=== PATIENT | female | born 2000 | race Caucasian/White ===

== ENCOUNTER 2018-08-22 15:00 | Inpatient (IN) | payer MEDICAID ==
[~2018-08-22] VITALS: Ht 160 cm; Wt 108.6 kg
[2018-08-22 16:05] VITALS: BP 110/72; PULSE 98; RESP 16; Ht 160 cm; Wt 108.6 kg
--- NOTE | 2018-08-22 17:39 | TRIAGE ---
OB Triage Datetime Report Generated by CPN: 08/22/2018 17:39 Datetime: 08/22/2018 17:33 Labor Evaluation Quality: Mild Pattern: Normal: <= 5 Contractions in 10 Minutes Resting Tone [place]: Relaxed Contraction Comments: no uc Heart Rate FHR Baseline Rate: 135 Monitor Mode: External US Variability: Moderate 6-25 bpm Accelerations: 15X15 Decelerations: None Category: Category I Datetime: 08/22/2018 17:01 Pattern: Normal: <= 5 Contractions in 10 Minutes Resting Tone [place]: Relaxed Contraction Comments: no uc Heart Rate FHR Baseline Rate: 135 Monitor Mode: External US Variability: Moderate 6-25 bpm Accelerations: 15X15 Decelerations: None Category: Category I Datetime: 08/22/2018 15:44 Assessment Type: Admission Assessment Maternal Assessment Level of Consciousness: Fully Conscious DTR's/Clonus: DTRs 2+; No Clonus Headache: Frontal Blurred Vision: No Respiratory Effort: Unlabored; Regular Rhythm; Equal Expansion Breath Sounds, Left: Clear and Equal Breath Sounds, Right: Clear and Equal Nausea/Vomiting: Denies RUQ Epigastric Pain: Denies Lower Extremities Edema: None Degree: None Upper Extremities Edema: None Facial Edema: None Fall Risk Assessment History of Falling: (0) No Secondary Diagnosis: (0) No Ambulatory Aid: (0) Bedrest/Nurse Assist IV Therapy: (0) No Gait: (0) Normal/Bedrest/Immobile Mental Status: (0) Oriented to Own Ability Fall Score: 0 Fall Risk Score Definition: No Risk: No action required Datetime: 08/22/2018 15:40 Arrived By: Ambulatory Arrived From: Office Chief Complaint: TO ob triage from md office for eval pih due to high bp @ office, pt. c/o light FERNANDO , pain level 4/10, deny epigastric pain. deny srom, deny dizziness Movement: Present Contractions: Denies/Absent Rupture of Membranes: Denies Vaginal Bleeding: None Vaginal Discharge: Denies Recent Sexual Intercouse: Denies Abdominal Trauma: Not Applicable Patient Complaints: None Time Provider Notified: 08/22/2018 16:43 Provider Notified: Initial Plan: r/o pih
[2018-08-22] MEDS: LACTATED RINGER'S 1,000 ML IV SCH (18:42)
--- NOTE | 2018-08-22 18:51 | HP ---
Date/Time of Note Date/Time of Note DATE: 08/22/18 TIME: 18:41 OB - History Hx of Present Free Text/Dictation 18-year-old 1 with single intrauterine at 33 weeks and 1 day with GRAEME of 10/09/2018 seen at clinic today, her blood pressure was 136/99 and 128/99. Patient's referred to hospital for further evaluation. She states good movement. She denies nausea, vomiting, shortness of breath, chest pain, headache, visual changes, vaginal bleeding or LOF. She states had on and off headache 3 days ago, currently denies any headache. Chief Complaint: Elevated blood pressure Estimated Due Date: Oct 09, 2018 : 1 Care: Good Care Ultrasounds: Normal mid trimester US Obstetrical Complications: Pre-eclampsia Medical Complications: Other (Obesity, she is currently 238 pounds) Past Family/Social History * Past Medical, Surgical, Family and Obstetric Histories reviewed from chart. OB Admission Exam Vital Signs Vital Signs Vital Signs Date Temp Pulse Resp B/P (MAP) Pulse Ox O2 O2 Flow FiO2 Time Delivery Rate 08/22/18 98.1 98 16 110/72 16:05 (85) Physical Exam HEENT: WNL Heart: Rhythm Normal Lungs: Clear Abdomen: WNL Extremities: Normal Reflexes: Normal Membranes: Intact Heart Rate: 140's Accelerations: Accelerations Present Decelerations: No Decelerations Varibility: Moderate Contractions on Admission: None Last 72 hours Lab Results CBC & BMP 08/22/18 15:41 Liver Function Test 08/22/18 15:41 Alanine Aminotransferase (ALT/SGPT) 67 Albumin 4.0 Alkaline Phosphatase 161 H Aspartate Amino Transf (AST/SGOT) 69 H Direct Bilirubin 0.00 Total Protein 8.0 OB Assessment/Plan Other plan: 18-year-old 1 at 33 weeks and 1 day with preeclampsia and obesity - FHR: No sign of metabolic acidosis- Category I - Continuous EFM, toco - CBC, CMP, uric acid - Urinalysis, 24 hUP - Blood type and screen - Betamethasone 12 mg daily x2 analgesia options with R/B/A discussed in detail with patient - Ultrasound performed, amniotic fluid 6.7 - Patient discussed with Dr. Bingham over the phone who has agreed with above plan. Addendum: CBC within normal limits. CMP: Normal BUN and creatinine. AST 69(1546). ALT 67 (1369) Uric acid 5.5 Urinalysis with 1+ urine protein Labs, ultrasound, management discussed in detail with patient. She expressed understanding. All of her questions answered. LEONEL CAMPUZANO Aug 22, 2018 18:51
[2018-08-23] MEDS: LACTATED RINGER'S 1,000 ML IV SCH ×3 (01:37→20:06)
[2018-08-23] MEDS: PRENATAL VITAMIN PO SCH (09:12)
--- NOTE | 2018-08-23 11:30 | PN ---
Date/Time of Note Date/Time of Note DATE: 08/23/18 TIME: 11:27 OB Subjective Subjective Subjective Denies any blurred vision epigastric pain right upper quadrant pain. Had some headache earlier today and resolved. Denies any leaking of fluid vaginal bleeding or decreased movement. Comfortable in bed. OB Objective Objective Objective GA : Alert and oriented x4 does not appear to be in any acute distress Abdomen: Soft, gravid, fundal height consider gestational age NST: Category 1 No contraction on the monitor Laboratory Tests Test 08/22/18 15:30 08/22/18 15:41 08/23/18 06:26 08/23/18 07:11 Urine Color CALEB Urine Clarity CLEAR Urine pH 5.0 Urine Specific 1.033 H [place] Urine Ketones NEGATIVE Urine Nitrite NEGATIVE Urine Bilirubin NEGATIVE Urine Urobilinogen 1+ H Urine Leukocyte 3+ H Esterase Urine Microscopic RBC 2 Urine Microscopic WBC 3 Urine Squamous FEW Epithelial Cells Urine Mucus FEW A Urine Hemoglobin NEGATIVE Urine Glucose NEGATIVE Urine Total Protein 1+ H White Blood Count 10.3 9.6 Red Blood Count 4.33 3.65 L Hemoglobin 12.8 10.7 L Hematocrit 38.3 31.7 L Mean Corpuscular 88.5 86.8 Volume Mean Corpuscular 29.6 29.3 Hemoglobin Mean Corpuscular 33.4 33.8 Hemoglobin Concent Red Cell Distribution 13.2 13.1 Width Platelet Count 220 177 Mean Platelet Volume 11.0 H 10.9 H Immature Granulocytes 2.200 H 1.900 H % Neutrophils % 69.3 66.2 Lymphocytes % 20.8 25.0 Monocytes % 6.6 5.8 Eosinophils % 0.4 0.7 Basophils % 0.7 0.4 Nucleated Red Blood 0.0 0.0 Cells % Immature Granulocytes 0.230 H 0.180 H # Neutrophils # 7.1 6.3 Lymphocytes # 2.1 2.4 Monocytes # 0.7 0.6 Eosinophils # 0.0 0.1 Basophils # 0.1 0.0 Nucleated Red Blood 0.0 0.0 Cells # Prothrombin Time 12.3 12.9 Prothrombin Time 1.0 1.0 Ratio INR International 0.90 0.96 Normalized Ratio Activated 29.5 29.2 Partial Thromboplast Time Fibrinogen 634.0 H 576.0 #H Sodium Level 137 138 Potassium Level 4.3 3.7 Chloride Level 106 106 Carbon Dioxide Level 22 23 Anion Gap 9 9 Blood Urea Nitrogen 10 7 Creatinine 0.51 0.43 L Est Glomerular > 60 > 60 Filtrat Rate mL/min Glucose Level 87 110 Uric Acid 5.5 5.1 Calcium Level 9.7 9.2 Total Bilirubin 0.1 L 0.1 L Direct Bilirubin 0.00 0.00 Indirect Bilirubin 0.1 0.1 Aspartate Amino 69 H 42 Transf (AST/SGOT) Alanine 67 55 Aminotransferase (ALT /SGPT) Alkaline Phosphatase 161 H 121 Total Protein 8.0 5.9 #L Albumin 4.0 3.0 #L Globulin 4.00 H 2.90 Albumin/Globulin 1.00 1.03 Ratio Lab Scanned Report REFERENCE LAB OB Assessment/Plan Other Assessment: Admitted for observation and concern for possible PIH Mild transaminitis, resolved and LFT today Blood pressures since admission in normal range Patient had mild headache that resolved, likely related 24-hour urine protein collection in process Continue finish 24-hour urine protein collection. Will be done today at 8 PM Continue watch blood pressure closely NST every shift Expectant management JESUS LINDSAY MD Aug 23, 2018 11:30
[2018-08-23] MEDS: BETAMET NA PHOS/AC(6 MG/ML) 2 ML INJ SYG IM SCH (14:49)
--- NOTE | 2018-08-23 15:53 | CONS ---
Date/Time of Note Date/Time of Note DATE: 08/23/18 TIME: 15:50 Assessment/Plan Assessment/Plan Result Diagram: 08/23/18 0711 08/23/18 0711 Results 24hrs Laboratory Tests Test 08/23/18 06:26 08/23/18 07:11 Lab Scanned Report REFERENCE LAB White Blood Count 9.6 Red Blood Count 3.65 L Hemoglobin 10.7 L Hematocrit 31.7 L Mean Corpuscular Volume 86.8 Mean Corpuscular Hemoglobin 29.3 Mean Corpuscular Hemoglobin Concent 33.8 Red Cell Distribution Width 13.1 Platelet Count 177 Mean Platelet Volume 10.9 H Immature Granulocytes % 1.900 H Neutrophils % 66.2 Lymphocytes % 25.0 Monocytes % 5.8 Eosinophils % 0.7 Basophils % 0.4 Nucleated Red Blood Cells % 0.0 Immature Granulocytes # 0.180 H Neutrophils # 6.3 Lymphocytes # 2.4 Monocytes # 0.6 Eosinophils # 0.1 Basophils # 0.0 Nucleated Red Blood Cells # 0.0 Prothrombin Time 12.9 Prothrombin Time Ratio 1.0 INR International Normalized Ratio 0.96 Activated Partial Thromboplast Time 29.2 Fibrinogen 576.0 #H Sodium Level 138 Potassium Level 3.7 Chloride Level 106 Carbon Dioxide Level 23 Anion Gap 9 Blood Urea Nitrogen 7 Creatinine 0.43 L Est Glomerular Filtrat Rate mL/min > 60 Glucose Level 110 Uric Acid 5.1 Calcium Level 9.2 Total Bilirubin 0.1 L Direct Bilirubin 0.00 Indirect Bilirubin 0.1 Aspartate Amino Transf (AST/SGOT) 42 Alanine Aminotransferase (ALT/SGPT) 55 Alkaline Phosphatase 121 Total Protein 5.9 #L Albumin 3.0 #L Globulin 2.90 Albumin/Globulin Ratio 1.03 Consultation Date/Type/Reason Admit Date/Time Aug 22, 2018 at 17:10 Date of Consultation: Aug 23, 2018 Type of Consult Neonatology Reason for Consultation PIH in third trimester 33-2/7 weeks. Requesting Provider: LEONEL CAMPUZANO of Present Illness Asked to consult with this family by Dr. Amy Perez. Katina is 18-year old 1 with obesity, gestational age 33-2/7 weeks, with high blood pressure and suspect of possible -induced hypertension. She denies illnesses medications including herbal medication including drug smoking and alcohol but admits to marijuana. She was admitted to the hospital on 08/22 and 24-hour urine collection is in progress while being observed for the high blood pressure. Threatening delivery puts the baby at risk for problems and n eurodevelopmental development and I discussed this extensively with the family. Also problems related to the acute hospitalization problems such as respiratory problems feeding problems including the need for intravenous feeding and gavage feeding, feeding intolerance and necrotizing enterocolitis, hyperbilirubinemia intracranial hemorrhage apnea infection and many other problems related to christiano turity were extensively discussed, consult lasted 30 minutes and all their questions were answered. More than 50% of the time was spent on counseling and coordination of care. Thank you for allowing me to assist in the care of this family. Respiratory: sputum Past Medical History Medications Current Medications Lactated Ringer's 1,000 ml @ 125 mls/hr Q8H IV Last administered on 08/23/18at 12:56; Admin Dose 125 MLS/HR; Start 08/22/18 at 17:24 Prenat Multivit/ [place]/Iron/Folic Ac () 1 tab DAILY PO Last administe red on 08/23/18at 09:12; Admin Dose 1 TAB; Start 08/23/18 at 09:00 Betamethasone Acet/Betameth SodPhos (Celestone Soluspan) 12 mg Q24H IM Last administered on 08/23/18at 14:49; Admin Dose 12 MG; Start 08/23/18 at 14:30; Stop 08/24/18 at 14:31 Allergies: Coded Allergies: No Known Allergy (Unverified , 08/22/18) Social History Smoking Status: Never smoker Exam/Review of Systems Vital Signs Vitals Vital Signs Date Temp Pulse Resp B/P (MAP) Pulse Ox O2 O2 Flow FiO2 Time Delivery Rate 08/22/18 98.1 98 16 110/72 16:05 (85) Intake and Output 08/22/18 08/22/18 08/23/18 1515:00 23:00 07:00 IntakeIntake Total 600 ml 750 ml BalanceBalance 600 ml 750 ml Medications Medications Current Medications Lactated Ringer's 1,000 ml @ 125 mls/hr Q8H IV Last administered on 08/23/18at 12:56; Admin Dose 125 MLS/HR; Start 08/22/18 at 17:24 Prenat Multivit/ Hand Quilter/Iron/Folic Ac () 1 tab DAILY PO Last administered on 08/23/18at 09:12; Admin Dose 1 TAB; Start 08/23/18 at 09:00 Betamethasone Acet/Betameth SodPhos (Celestone Soluspan) 12 mg Q24H IM Last administered on 08/23/18at 14:49; Admin Dose 12 MG; Start 08/23/18 at 14:30; Stop 08/24/18 at 14:31 OSWALDO KOCH Aug 23, 2018 15:53
[2018-08-24] MEDS: LACTATED RINGER'S 1,000 ML IV SCH ×4 (01:24→21:16)
--- NOTE | 2018-08-24 01:44 | CONS ---
DATE OF ADMISSION: 08/22/2018 DATE OF CONSULTATION: 08/23/2018 TYPE OF CONSULTATION: Perinatology. HISTORY OF PRESENT ILLNESS: The patient is primigravida admitted from clinic with elevated blood pre ssure. Her diastolic blood pressure was 99. She denies history of hypertension. During her [facility] stay, her blood pressures have been normal. At presentation, her AST was 69; today, it is complete ly normal. She is currently 33 weeks and 2 days. Otherwise, laboratories are normal for pre-eclamps ia and 24-hour urine for protein collection is pending. OB HISTORY: G1. PAST SURGICAL HISTORY: None. REVIEW OF SYSTEMS: All systems reviewed; they are all negative. PHYSICAL EXAMINATION: Blood pressure is currently normal. Physical examination deferred. hea rt tones. She is on testing . However, yesterday, she had 1 small late deceleration; otherwise, normal. Overall reassuring. IMPRESSION: Intrauterine at 33 weeks and 2 days with elevated blood pressure in clinic. N ormal blood pressures completely in the hospital. AST elevation normal today. A 24-hour urine for p rotein is pending. Currently, she does not meet the criteria for diagnosis of gestational hypertensi on or pre-eclampsia for the absence of elevation of blood pressures 4 hours apart. She is to receive the second dose of betamethasone tonight. RECOMMENDATIONS: We can discharge the patient tomorrow if her blood pressures are normal or moderate range without any evidence of severe blood pressure. Also, repeat this complete metabolic panel and I do recommend continuous heart tone monitoring. If all are stable, she can be discharged [place], but since the patient had 1 diastolic blood pressure elevation, I do recommend testing t wice weekly and monitoring, so we can assess further management. Dictated By: CARINA GARZA MD ST/NTS Conf#: [id number] DID#: [id number] CC: LEONEL CAMPUZANO MD;*[facility]*
[2018-08-24] MEDS: PRENATAL VITAMIN PO SCH (08:09)
[2018-08-24] MEDS: BETAMET NA PHOS/AC(6 MG/ML) 2 ML INJ SYG IM SCH (15:09)
--- NOTE | 2018-08-25 00:39 | DS ---
Date/Time of Note Date/Time of Note DATE: 08/24/18 TIME: 23:35 Obstetrical Discharge Record Final Diagnosis Final Diagnosis: not delivered Other Final Diagnosis Late entry note. Patient seen on 08/24/2017 18-year-old 1 with single intrauterine at 33 weeks and 3 days had elevated blood pressure during visit. She was sent to the [facility] for further management. heart rate is category 1. She has no uterine contraction. Initially she had elevated AST (69). She was admitted for close observation and 24-hour urine protein. Betamethasone 12 mg daily for 2 doses given. AST 69 then 42 and 41 in today's lab ALT 67 and 55 and 49 in 2 days lab Highest blood pressure during admission was 111/63 24-hour urine protein is 412 Patient did not have any sign or symptom of preeclampsia with severe features. Sign and symptom of preeclampsia, labor, kick count discussed with patient in detail. She expressed understanding all of her questions answered. She discharged home in stable condition. I did recommend she buy a blood pressure machine and check her blood pressure at home twice a day. She has been scheduled for NST twice a week and FRANCISCO weekly. Follow-up in 2-3 days in clinic. Condition on Discharge Physical Assessment Voiding: Yes Bowel Movement: Yes Fundus: Firm Calf Tenderness: No Patient Condition: Stable LEONEL CAMPUZANO Aug 25, 2018 00:39
== END 2018-08-24 23:25 | disposition home or self-care (01) | DRG 833 ==
LOC: OBT 15:00 → L-D 15:03 → OBT 17:10 → PP1 18:14
PROVIDERS: ADMIT Obstetrics & Gynecology; ATTEND Obstetrics & Gynecology
DX: O26.893 Other specified pregnancy related conditions, third trimester (principal); O99.213 Obesity complicating pregnancy, third trimester; Z3A.33 33 weeks gestation of pregnancy; R03.0 Elevated blood-pressure reading, without diagnosis of hypertension
CPT/HCPCS: 76818; 80053; 81001; 82575; 84156; 84560; 85025; 85384; 85610; 85730; G0463; J0702; J7120

== ENCOUNTER 2018-08-27 10:24 | Outpatient (CLI) | payer MEDICAID ==
[~2018-08-27] VITALS: Ht 160 cm; Wt 108.8 kg
[2018-08-27 10:32] VITALS: Ht 160 cm; Wt 108.8 kg
[2018-08-27 10:33] VITALS: BP 113/64; PULSE 103; RESP 17
--- NOTE | 2018-08-27 12:09 | PN ---
Triage Information Date/Time Reason for visit: HX og Gestational HTN for NST BPP Weeks of Gestation 33+ /Para n/a Diabetes: none Hypertention: none Objective Vital Signs Date Temp Pulse Resp B/P (MAP) Pulse Ox O2 O2 Flow FiO2 Time Delivery Rate 08/27/18 98.5 103 17 113/64 10:33 (80) Heart Rate: 140's Contractions: None Disposition: Discharge Assessment/Plan BPP 03/28 Discharged with precautions Questions answered Follow up with provider DAMIAN MAYA M.D. Aug 27, 2018 12:08
--- NOTE | 2018-08-27 12:17 | TRIAGE ---
OB Triage Datetime Report Generated by CPN: 08/27/2018 12:16 Datetime: 08/27/2018 11:19 Comments: reactive nst Datetime: 08/27/2018 10:35 Assessment Type: Triage Maternal Assessment Level of Consciousness: Fully Conscious DTR's/Clonus: DTRs 2+; No Clonus Headache: Denies Blurred Vision: No Respiratory Effort: Unlabored; Regular Rhythm; Equal Expansion Breath Sounds, Left: Clear and Equal Breath Sounds, Right: Clear and Equal Nausea/Vomiting: Denies RUQ Epigastric Pain: Denies Lower Extremities Edema: None Degree: None Upper Extremities Edema: None Degree: None Facial Edema: None Fall Risk Assessment History of Falling: (0) No Secondary Diagnosis: (0) No Ambulatory Aid: (0) Bedrest/Nurse Assist IV Therapy: (0) No Gait: (0) Normal/Bedrest/Immobile Mental Status: (0) Oriented to Own Ability Fall Score: 0 Fall Risk Score Definition: No Risk: No action required Datetime: 08/27/2018 10:34 Time of Arrival: 08/27/2018 10:20 EGA: 33.6 Arrived By: Ambulatory Arrived From: Home Chief Complaint: Biweekly nst _ bpp Movement: Present Contractions: Denies/Absent Rupture of Membranes: Denies Vaginal Bleeding: None Vaginal Discharge: Denies Recent Sexual Intercouse: Denies Abdominal Trauma: Not Applicable Patient Complaints: None Time Provider Notified: 08/27/2018 12:00 Provider Notified: hadadian Initial Plan: nst, bpp Datetime: 08/25/2018 23:15 Stage of : Antepartum Datetime: 08/24/2018 23:25 Stage of : Antepartum Datetime: 08/24/2018 22:00 Labor Evaluation Frequency: ONE Monitor Mode: External Resting Tone Doctor Phillips: Relaxed Heart Rate FHR Baseline Rate: 135 Monitor Mode: External US Variability: Moderate 6-25 bpm Accelerations: 15X15 Decelerations: None Category: Category I Pain Presence: None/Denies Pain Type: N/A Datetime: 08/24/2018 21:16 Stage of : Antepartum Datetime: 08/24/2018 21:00 Labor Evaluation Frequency: NONE Monitor Mode: External Resting Tone Doctor Phillips: Relaxed Heart Rate FHR Baseline Rate: 135 Monitor Mode: External US Variability: Moderate 6-25 bpm Accelerations: 15X15 Decelerations: Variable Category: Category II Pain Presence: None/Denies Pain Type: N/A Datetime: 08/24/2018 20:00 Heart Rate FHR Baseline Rate: 130 Monitor Mode: External US Variability: Moderate 6-25 bpm Accelerations: 15X15 Decelerations: None Category: Category I Pain Presence: None/Denies Pain Type: N/A Datetime: 08/24/2018 19:36 Stage of : Antepartum Assessment Type: Ongoing Assessment Maternal Assessment Level of Consciousness: Fully Conscious DTR's/Clonus: DTRs 2+; No Clonus Headache: Denies Blurred Vision: No Respiratory Effort: Unlabored; Regular Rhythm; Equal Expansion Breath Sounds, Left: Clear and Equal Breath Sounds, Right: Clear and Equal Nausea/Vomiting: Denies RUQ Epigastric Pain: Denies Lower Extremities Edema: None Degree: None Upper Extremities Edema: None Degree: None Facial Edema: None Temperature Route: Oral Fall Risk Assessment History of Falling: (0) No Secondary Diagnosis: (0) No Ambulatory Aid: (0) Bedrest/Nurse Assist IV Therapy: (0) No Gait: (0) Normal/Bedrest/Immobile Mental Status: (0) Oriented to Own Ability Fall Score: 0 Fall Risk Score Definition: No Risk: No action required Contraction Comments: PT DENIES CRAMPING Comments: PT STATES THE BABY MOVES A LOT Pain Presence: None/Denies Pain Type: N/A Vaginal Exam Membrane Status: Intact Vaginal Bleeding: None Datetime: 08/24/2018 18:57 Labor Evaluation Frequency: NONE Monitor Mode: External Pattern: Normal: <= 5 Contractions in 10 Minutes Resting Tone Doctor Phillips: Relaxed Heart Rate FHR Baseline Rate: 140 Monitor Mode: External US FHR Baseline Changes: No Baseline Change Variability: Moderate 6-25 bpm Accelerations: 15X15 Decelerations: None Category: Category I Datetime: 08/24/2018 18:00 Labor Evaluation Frequency: NONE Monitor Mode: External Pattern: Normal: <= 5 Contractions in 10 Minutes Resting Tone Doctor Phillips: Relaxed Heart Rate FHR Baseline Rate: 140 Monitor Mode: External US FHR Baseline Changes: No Baseline Change Variability: Moderate 6-25 bpm Accelerations: 15X15 Decelerations: None Category: Category I Datetime: 08/24/2018 17:00 Labor Evaluation Frequency: X2 Monitor Mode: External Duration (sec)2399: 40-70 Quality: Mild Pattern: Normal: <= 5 Contractions in 10 Minutes Resting Tone Doctor Phillips: Relaxed Heart Rate FHR Baseline Rate: 135 Monitor Mode: External US FHR Baseline Changes: No Baseline Change Variability: Moderate 6-25 bpm Accelerations: 15X15 Decelerations: None Category: Category I Datetime: 08/24/2018 16:00 Labor Evaluation Frequency: NONE Monitor Mode: External Pattern: Normal: <= 5 Contractions in 10 Minutes Resting Tone Doctor Phillips: Relaxed Heart Rate FHR Baseline Rate: 145 Monitor Mode: External US FHR Baseline Changes: No Baseline Change Variability: Moderate 6-25 bpm Accelerations: 15X15 Decelerations: Variable Category: Category II Datetime: 08/24/2018 15:00 Labor Evaluation Frequency: NONE Monitor Mode: External Pattern: Normal: <= 5 Contractions in 10 Minutes Resting Tone Doctor Phillips: Relaxed Heart Rate FHR Baseline Rate: 135 Monitor Mode: External US FHR Baseline Changes: No Baseline Change Variability: Moderate 6-25 bpm Accelerations: 15X15 Decelerations: None Category: Category I Datetime: 08/24/2018 14:00 Labor Evaluation Frequency: NONE Monitor Mode: External Pattern: Normal: <= 5 Contractions in 10 Minutes Resting Tone Doctor Phillips: Relaxed Heart Rate FHR Baseline Rate: 135 Monitor Mode: External US FHR Baseline Changes: No Baseline Change Variability: Moderate 6-25 bpm Accelerations: 15X15 Decelerations: None Category: Category I Datetime: 08/24/2018 13:00 Labor Evaluation Frequency: NONE Monitor Mode: External Pattern: Normal: <= 5 Contractions in 10 Minutes Resting Tone Doctor Phillips: Relaxed Heart Rate FHR Baseline Rate: 135 Monitor Mode: External US FHR Baseline Changes: No Baseline Change Variability: Moderate 6-25 bpm Accelerations: 15X15 Decelerations: None Category: Category I Datetime: 08/24/2018 12:00 Labor Evaluation Frequency: NONE Monitor Mode: External Pattern: Normal: <= 5 Contractions in 10 Minutes Resting Tone Doctor Phillips: Relaxed Heart Rate FHR Baseline Rate: 135 Monitor Mode: External US FHR Baseline Changes: No Baseline Change Variability: Moderate 6-25 bpm Accelerations: 15X15 Decelerations: None Category: Category I Datetime: 08/24/2018 11:00 Labor Evaluation Frequency: NONE Monitor Mode: External Pattern: Normal: <= 5 Contractions in 10 Minutes Resting Tone Doctor Phillips: Relaxed Heart Rate FHR Baseline Rate: 135 Monitor Mode: External US FHR Baseline Changes: No Baseline Change Variability: Moderate 6-25 bpm Accelerations: 15X15 Decelerations: None Category: Category I Datetime: 08/24/2018 10:00 Labor Evaluation Frequency: OCCAISONAL Monitor Mode: External Duration (sec)2399: 40-60 Quality: Mild Pattern: Normal: <= 5 Contractions in 10 Minutes Resting Tone Doctor Phillips: Relaxed Heart Rate FHR Baseline Rate: 135 Monitor Mode: External US FHR Baseline Changes: No Baseline Change Variability: Moderate 6-25 bpm Accelerations: 15X15 Decelerations: None Category: Category I Datetime: 08/24/2018 09:00 Labor Evaluation Frequency: NONE Monitor Mode: External Pattern: Normal: <= 5 Contractions in 10 Minutes Resting Tone Doctor Phillips: Relaxed Heart Rate FHR Baseline Rate: 130 Monitor Mode: External US FHR Baseline Changes: No Baseline Change Variability: Moderate 6-25 bpm Accelerations: 15X15 Decelerations: None Category: Category I Datetime: 08/24/2018 08:13 Temperature Route: Axillary Datetime: 08/24/2018 08:00 Labor Evaluation Frequency: OCCASIONAL Monitor Mode: External Duration (sec)2399: 30-40 Quality: Mild Pattern: Normal: <= 5 Contractions in 10 Minutes Resting Tone Doctor Phillips: Relaxed Heart Rate FHR Baseline Rate: 130 Monitor Mode: External US FHR Baseline Changes: No Baseline Change Variability: Moderate 6-25 bpm Accelerations: 15X15 Decelerations: None Category: Category I Datetime: 08/24/2018 07:31 Assessment Type: Ongoing Assessment Maternal Assessment Level of Consciousness: Fully Conscious DTR's/Clonus: DTRs 2+; No Clonus Headache: Denies Blurred Vision: No Respiratory Effort: Unlabored; Regular Rhythm; Equal Expansion Breath Sounds, Left: Clear and Equal Breath Sounds, Right: Clear and Equal Nausea/Vomiting: Denies RUQ Epigastric Pain: Denies Lower Extremities Edema: None Upper Extremities Edema: None Facial Edema: None Fall Risk Assessment History of Falling: (0) No Secondary Diagnosis: (0) No Ambulatory Aid: (0) Bedrest/Nurse Assist IV Therapy: (20) Yes Gait: (0) Normal/Bedrest/Immobile Mental Status: (0) Oriented to Own Ability Fall Score: 20 Fall Risk Score Definition: No Risk: No action required Datetime: 08/24/2018 07:00 Labor Evaluation Frequency: occasional Monitor Mode: External Duration (sec)2399: 40-50 Quality: Mild Resting Tone Doctor Phillips: Relaxed Heart Rate FHR Baseline Rate: 135 Monitor Mode: External US Variability: Moderate 6-25 bpm Accelerations: 15X15 Decelerations: Variable Category: Category II Pain Presence: None/Denies Datetime: 08/24/2018 06:00 Labor Evaluation Frequency: 0 Monitor Mode: External Resting Tone Doctor Phillips: Relaxed Heart Rate FHR Baseline Rate: 135 Monitor Mode: External US Variability: Moderate 6-25 bpm Accelerations: 15X15 Decelerations: None Category: Category I Pain Presence: None/Denies Datetime: 08/24/2018 05:13 Maternal Assessment Level of Consciousness: Fully Conscious Headache: Denies Blurred Vision: No Temperature Route: Oral Pain Presence: None/Denies Datetime: 08/24/2018 05:00 Labor Evaluation Frequency: occasional Monitor Mode: External Duration (sec)2399: 50-60 Quality: Mild Resting Tone Doctor Phillips: Relaxed Heart Rate FHR Baseline Rate: 135 Monitor Mode: External US Variability: Moderate 6-25 bpm Accelerations: 15X15 Decelerations: None Category: Category I Pain Presence: None/Denies Datetime: 08/24/2018 04:00 Labor Evaluation Frequency: x2 Monitor Mode: External Duration (sec)2399: 50-60 Quality: Mild Resting Tone Doctor Phillips: Relaxed Heart Rate FHR Baseline Rate: 135 Monitor Mode: External US Variability: Moderate 6-25 bpm Accelerations: 15X15 Decelerations: None Category: Category I Datetime: 08/24/2018 03:00 Labor Evaluation Frequency: 0 Monitor Mode: External Duration (sec)2399: denies Resting Tone Doctor Phillips: Relaxed Heart Rate FHR Baseline Rate: 135 Monitor Mode: External US Variability: Moderate 6-25 bpm Accelerations: 15X15 Decelerations: Variable Category: Category II Pain Presence: None/Denies Datetime: 08/24/2018 02:00 Labor Evaluation Frequency: 0 Monitor Mode: External Resting Tone Doctor Phillips: Relaxed Heart Rate FHR Baseline Rate: 135 Monitor Mode: External US Variability: Moderate 6-25 bpm Accelerations: 15X15 Decelerations: Variable Category: Category II Datetime: 08/24/2018 01:00 Labor Evaluation Frequency: 0 Monitor Mode: External Duration (sec)2399: denies Resting Tone Doctor Phillips: Relaxed Heart Rate FHR Baseline Rate: 135 Monitor Mode: External US Variability: Moderate 6-25 bpm Accelerations: 15X15 Decelerations: None Category: Category I Pain Presence: None/Denies Datetime: 08/24/2018 00:00 Labor Evaluation Frequency: 0 Monitor Mode: External Resting Tone Doctor Phillips: Relaxed Heart Rate FHR Baseline Rate: 135 Variability: Moderate 6-25 bpm Pain Presence: None/Denies Datetime: 08/23/2018 23:00 Labor Evaluation Frequency: 0 Monitor Mode: External Duration (sec)2399: DENIES Resting Tone Doctor Phillips: Relaxed Heart Rate FHR Baseline Rate: 140 Monitor Mode: External US Variability: Moderate 6-25 bpm Accelerations: 15X15 Decelerations: None Category: Category I Comments: VERY DIFFICULT TO TRACE FETUS PT IS EXTREMELY OBESE. Pain Presence: None/Denies Datetime: 08/23/2018 22:00 Labor Evaluation Frequency: 0 Monitor Mode: External Duration (sec)2399: DENIES Resting Tone Doctor Phillips: Relaxed Heart Rate FHR Baseline Rate: 145 Monitor Mode: External US Variability: Moderate 6-25 bpm Accelerations: 15X15 Decelerations: None Category: Category I Pain Presence: None/Denies Datetime: 08/23/2018 21:00 Labor Evaluation Frequency: 0 Monitor Mode: External Duration (sec)2399: DENIES Resting Tone Doctor Phillips: Relaxed Heart Rate FHR Baseline Rate: 135 Monitor Mode: External US Variability: Moderate 6-25 bpm Accelerations: 15X15 Decelerations: None Category: Category I Comments: LOSS OF CONTACT AT TIMES,PT WAS SITTING UP. Pain Presence: None/Denies Datetime: 08/23/2018 20:08 Stage of : Antepartum Assessment Type: Ongoing Assessment Maternal Assessment Level of Consciousness: Fully Conscious DTR's/Clonus: DTRs 2+; No Clonus Headache: Denies Blurred Vision: No Respiratory Effort: Unlabored; Regular Rhythm; Equal Expansion Breath Sounds, Left: Clear and Equal Breath Sounds, Right: Clear and Equal Nausea/Vomiting: Denies RUQ Epigastric Pain: Denies Lower Extremities Edema: None Degree: None Upper Extremities Edema: None Degree: None Facial Edema: None Temperature Route: Oral Fall Risk Assessment History of Falling: (0) No Secondary Diagnosis: (0) No Ambulatory Aid: (0) Bedrest/Nurse Assist IV Therapy: (0) No Gait: (0) Normal/Bedrest/Immobile Mental Status: (0) Oriented to Own Ability Fall Score: 0 Fall Risk Score Definition: No Risk: No action required Pain Presence: None/Denies Datetime: 08/23/2018 20:00 Labor Evaluation Frequency: X1 Monitor Mode: External Duration (sec)2399: 60 Quality: Mild Resting Tone Doctor Phillips: Relaxed Heart Rate FHR Baseline Rate: 135 Monitor Mode: External US Variability: Moderate 6-25 bpm Accelerations: 15X15 Decelerations: None Category: Category I Pain Presence: None/Denies Datetime: 08/23/2018 19:02 Monitor Mode: External US Datetime: 08/23/2018 19:00 Labor Evaluation Frequency: 0 Monitor Mode: External Resting Tone Doctor Phillips: Relaxed Heart Rate FHR Baseline Rate: 135 Monitor Mode: External US FHR Baseline Changes: No Baseline Change Variability: Moderate 6-25 bpm Accelerations: 15X15 Decelerations: None Pain Assessment Pain Scale: 0 Pain Presence: None/Denies Pain Type: N/A Datetime: 08/23/2018 18:00 Labor Evaluation Frequency: 0 Monitor Mode: External Resting Tone Doctor Phillips: Relaxed Heart Rate FHR Baseline Rate: 140 Monitor Mode: External US FHR Baseline Changes: No Baseline Change Variability: Moderate 6-25 bpm Accelerations: 15X15 Decelerations: None Category: Category I Pain Presence: None/Denies Pain Type: N/A Datetime: 08/23/2018 17:00 Labor Evaluation Frequency: 0 Monitor Mode: External Resting Tone Doctor Phillips: Relaxed Heart Rate FHR Baseline Rate: 140 Monitor Mode: External US FHR Baseline Changes: No Baseline Change Variability: Moderate 6-25 bpm Accelerations: 15X15 Decelerations: None Category: Category I Pain Assessment Pain Scale: 0 Pain Presence: None/Denies Pain Type: N/A Datetime: 08/23/2018 16:00 Labor Evaluation Frequency: 0 Monitor Mode: External Resting Tone Doctor Phillips: Relaxed Heart Rate FHR Baseline Rate: 135 Monitor Mode: External US FHR Baseline Changes: No Baseline Change Variability: Moderate 6-25 bpm Accelerations: 15X15 Decelerations: None Pain Assessment Pain Scale: 0 Pain Presence: None/Denies Pain Type: N/A Datetime: 08/23/2018 15:07 Stage of : Antepartum Datetime: 08/23/2018 15:00 Stage of : Antepartum Labor Evaluation Frequency: x1 Monitor Mode: External Duration (sec)2399: 60 Quality: Mild Pattern: Normal: <= 5 Contractions in 10 Minutes Resting Tone Doctor Phillips: Relaxed Pain Assessment Pain Scale: 0 Pain Presence: None/Denies Pain Type: N/A Datetime: 08/23/2018 14:00 Labor Evaluation Frequency: 0 Monitor Mode: External Resting Tone Doctor Phillips: Relaxed Pain Assessment Pain Scale: 0 Pain Presence: None/Denies Pain Type: N/A Datetime: 08/23/2018 13:03 Stage of : Antepartum Datetime: 08/23/2018 13:00 Labor Evaluation Frequency: 0 Monitor Mode: External Resting Tone Doctor Phillips: Relaxed Pain Assessment Pain Scale: 0 Pain Presence: None/Denies Pain Type: N/A Datetime: 08/23/2018 12:13 Stage of : Antepartum Temperature Route: Oral Datetime: 08/23/2018 12:00 Labor Evaluation Frequency: 0 Monitor Mode: External Resting Tone Doctor Phillips: Relaxed Pain Assessment Pain Scale: 0 Pain Presence: None/Denies Pain Type: N/A Datetime: 08/23/2018 11:00 Labor Evaluation Frequency: 0 Monitor Mode: External Resting Tone Doctor Phillips: Relaxed Pain Assessment Pain Scale: 0 Pain Presence: None/Denies Pain Type: N/A Datetime: 08/23/2018 10:00 Labor Evaluation Frequency: x1 Monitor Mode: External Duration (sec)2399: 70 Quality: Mild Pattern: Normal: <= 5 Contractions in 10 Minutes Resting Tone Doctor Phillips: Relaxed Heart Rate FHR Baseline Rate: 130 Monitor Mode: External US FHR Baseline Changes: No Baseline Change Variability: Moderate 6-25 bpm Accelerations: 15X15 Decelerations: Variable Category: Category II Pain Assessment Pain Scale: 0 Pain Presence: None/Denies Pain Type: N/A Datetime: 08/23/2018 09:58 Stage of : Antepartum Datetime: 08/23/2018 09:00 Labor Evaluation Frequency: x1 Monitor Mode: External Duration (sec)2399: 70 Quality: Mild Pattern: Normal: <= 5 Contractions in 10 Minutes Resting Tone Doctor Phillips: Relaxed Heart Rate FHR Baseline Rate: 130 Monitor Mode: External US FHR Baseline Changes: No Baseline Change Variability: Moderate 6-25 bpm Pain Assessment Pain Scale: 0 Pain Presence: None/Denies Pain Type: N/A Datetime: 08/23/2018 08:00 Stage of : Antepartum Labor Evaluation Frequency: x3 Monitor Mode: External Duration (sec)2399: 70 Quality: Mild Pattern: Normal: <= 5 Contractions in 10 Minutes Resting Tone Doctor Phillips: Relaxed Contraction Comments: denies feeling contractions Heart Rate FHR Baseline Rate: 130 Monitor Mode: External US FHR Baseline Changes: No Baseline Change Variability: Moderate 6-25 bpm Accelerations: 15X15 Decelerations: None Category: Category I Pain Assessment Pain Scale: 0 Pain Presence: None/Denies Pain Type: N/A Datetime: 08/23/2018 07:49 Stage of : Antepartum Datetime: 08/23/2018 07:47 Stage of : Antepartum Temperature Route: Oral Datetime: 08/23/2018 07:45 Assessment Type: Ongoing Assessment Maternal Assessment Level of Consciousness: Fully Conscious DTR's/Clonus: DTRs 2+; No Clonus Headache: Denies Blurred Vision: No Respiratory Effort: Unlabored; Regular Rhythm; Equal Expansion Breath Sounds, Left: Clear and Equal Breath Sounds, Right: Clear and Equal Nausea/Vomiting: Denies RUQ Epigastric Pain: Denies Lower Extremities Edema: None Degree: None Upper Extremities Edema: None Degree: None Facial Edema: None Fall Risk Assessment History of Falling: (0) No Secondary Diagnosis: (0) No Ambulatory Aid: (0) Bedrest/Nurse Assist IV Therapy: (0) No Gait: (0) Normal/Bedrest/Immobile Mental Status: (0) Oriented to Own Ability Fall Score: 0 Fall Risk Score Definition: No Risk: No action required Datetime: 08/23/2018 06:54 Labor Evaluation Frequency: 0 Monitor Mode: External Resting Tone Doctor Phillips: Relaxed Heart Rate FHR Baseline Rate: 135 Variability: Moderate 6-25 bpm Comments: very difficult to keep fetus on monitor pt is extremely obese. Datetime: 08/23/2018 06:00 Labor Evaluation Frequency: 0 Monitor Mode: External Resting Tone Doctor Phillips: Relaxed Heart Rate FHR Baseline Rate: 135 Variability: Moderate 6-25 bpm Pain Presence: None/Denies Datetime: 08/23/2018 05:00 Labor Evaluation Frequency: 0 Monitor Mode: External Duration (sec)2399: denies Resting Tone Doctor Phillips: Relaxed Heart Rate FHR Baseline Rate: 135 Datetime: 08/23/2018 04:00 Labor Evaluation Frequency: 0 Monitor Mode: External Resting Tone Doctor Phillips: Relaxed Heart Rate FHR Baseline Rate: 135 Comments: very difficult to trace fetus due to maternal movments,pt is obese. Pain Presence: None/Denies Datetime: 08/23/2018 03:00 Labor Evaluation Frequency: 0 Monitor Mode: External Duration (sec)2399: DENIES Resting Tone Doctor Phillips: Relaxed Heart Rate FHR Baseline Rate: 140 Monitor Mode: External US Variability: Moderate 6-25 bpm Accelerations: 15X15 Decelerations: None Category: Category I Pain Presence: None/Denies Datetime: 08/23/2018 02:00 Labor Evaluation Frequency: 0 Monitor Mode: External Resting Tone Doctor Phillips: Relaxed Heart Rate FHR Baseline Rate: 135 Monitor Mode: External US Variability: Moderate 6-25 bpm Accelerations: 15X15 Decelerations: None Category: Category I Pain Presence: None/Denies Datetime: 08/23/2018 01:00 Labor Evaluation Frequency: 0 Monitor Mode: External Duration (sec)2399: DENIES Resting Tone Doctor Phillips: Relaxed Heart Rate FHR Baseline Rate: 135 Monitor Mode: External US Variability: Moderate 6-25 bpm Accelerations: 15X15 Decelerations: None Category: Category I Pain Presence: None/Denies Datetime: 08/23/2018 00:00 Labor Evaluation Frequency: 0 Monitor Mode: External Duration (sec)2399: DENIES Resting Tone Doctor Phillips: Relaxed Heart Rate FHR Baseline Rate: 130 Monitor Mode: External US Variability: Moderate 6-25 bpm Accelerations: 10X10 Decelerations: None Pain Presence: None/Denies Datetime: 08/22/2018 23:00 Labor Evaluation Frequency: 0 Monitor Mode: External Duration (sec)2399: DENIES Resting Tone Doctor Phillips: Relaxed Heart Rate FHR Baseline Rate: 145 Monitor Mode: External US Variability: Moderate 6-25 bpm Accelerations: 15X15 Decelerations: None Category: Category I Pain Presence: None/Denies Datetime: 08/22/2018 22:00 Labor Evaluation Frequency: 0 Monitor Mode: External Resting Tone Doctor Phillips: Relaxed Heart Rate FHR Baseline Rate: 140 Monitor Mode: External US Variability: Moderate 6-25 bpm Accelerations: 15X15 Decelerations: None Category: Category I Pain Presence: None/Denies Datetime: 08/22/2018 21:08 Pain Presence: None/Denies Pain Assessment Comments: pt denies pain or any discomfort at this time. Datetime: 08/22/2018 21:00 Labor Evaluation Frequency: 0 Monitor Mode: External Duration (sec)2399: denies Resting Tone Doctor Phillips: Relaxed Heart Rate FHR Baseline Rate: 135 Monitor Mode: External US Variability: Moderate 6-25 bpm Accelerations: 15X15 Decelerations: None Category: Category I Pain Presence: None/Denies Datetime: 08/22/2018 20:00 Labor Evaluation Frequency: 0 Monitor Mode: External Duration (sec)2399: denies Resting Tone Doctor Phillips: Relaxed Heart Rate FHR Baseline Rate: 135 Monitor Mode: External US Variability: Moderate 6-25 bpm Accelerations: 15X15 Decelerations: None Category: Category I Comments: of at times pt was eating dinner. Pain Presence: None/Denies Datetime: 08/22/2018 19:38 Stage of : Antepartum Temperature Route: Oral Pain Presence: None/Denies Datetime: 08/22/2018 19:10 Stage of : Antepartum Assessment Type: Ongoing Assessment Maternal Assessment Level of Consciousness: Fully Conscious DTR's/Clonus: DTRs 2+; No Clonus Headache: Denies Blurred Vision: No Respiratory Effort: Unlabored; Regular Rhythm; Equal Expansion Breath Sounds, Left: Clear and Equal Breath Sounds, Right: Clear and Equal Nausea/Vomiting: Denies RUQ Epigastric Pain: Denies Lower Extremities Edema: None Degree: None Upper Extremities Edema: None Degree: None Facial Edema: None Fall Risk Assessment History of Falling: (0) No Secondary Diagnosis: (0) No Ambulatory Aid: (0) Bedrest/Nurse Assist IV Therapy: (0) No Gait: (0) Normal/Bedrest/Immobile Mental Status: (0) Oriented to Own Ability Fall Score: 0 Fall Risk Score Definition: No Risk: No action required Datetime: 08/22/2018 19:00 Labor Evaluation Frequency: 0 Monitor Mode: External Resting Tone Doctor Phillips: Relaxed Heart Rate FHR Baseline Rate: 130 Monitor Mode: External US FHR Baseline Changes: No Baseline Change Variability: Moderate 6-25 bpm Accelerations: 15X15 Decelerations: None Pain Assessment Pain Scale: 0 Pain Presence: None/Denies Pain Type: N/A Datetime: 08/22/2018 18:58 Assessment Type: Admission Assessment Vaginal Bleeding: None Maternal Assessment Level of Consciousness: Fully Conscious DTR's/Clonus: DTRs 2+; No Clonus Headache: Denies Blurred Vision: No Respiratory Effort: Unlabored; Regular Rhythm; Equal Expansion Breath Sounds, Left: Clear and Equal Breath Sounds, Right: Clear and Equal Nausea/Vomiting: Denies RUQ Epigastric Pain: Denies Facial Edema: None Fall Risk Assessment History of Falling: (0) No Secondary Diagnosis: (0) No Ambulatory Aid: (0) Bedrest/Nurse Assist IV Therapy: (0) No Gait: (0) Normal/Bedrest/Immobile Mental Status: (0) Oriented to Own Ability Fall Score: 0 Fall Risk Score Definition: No Risk: No action required Datetime: 08/22/2018 15:44 Fall Score: 0 Fall Risk Score Definition: No Risk: No action required Datetime: 08/22/2018 15:40 Time of Arrival: 08/22/2018 18:00 EGA: 33.1
== END 2018-08-27 12:16 | disposition home or self-care (01) ==
LOC: OBT 10:24 → L-D 10:25 → OBT 12:16
PROVIDERS: ATTEND Obstetrics & Gynecology
DX: O13.3 Gestational [pregnancy-induced] hypertension without significant proteinuria, third trimester (principal); O36.8330 Maternal care for abnormalities of the fetal heart rate or rhythm, third trimester, not applicable or unspecified; Z3A.33 33 weeks gestation of pregnancy
CPT/HCPCS: 76818; Z7500; G0463